=== PATIENT | female | born 1980 | race Caucasian/White ===

== ENCOUNTER → 2017-04-25 | Emergency (ER) | payer OTHER ==
[~2017-04-25] VITALS: Ht 162.6 cm; Wt 61.2 kg
== END | disposition home or self-care (01) ==
LOC: ER 15:49
DX: B02.9 Zoster without complications (principal)

== ENCOUNTER 2018-01-30 16:14 | Emergency (ER) | payer OTHER ==
[~2018-01-30] VITALS: Ht 162.6 cm; Wt 54.4 kg
[2018-01-30] MEDS ORDERED: PANADOL EXTRA500 MG (16:33)
[2018-01-30] MEDS ORDERED: [UNRECOGNIZED DRUG - OTHER] (16:34)
== END 2018-01-30 22:11 | disposition home or self-care (01) ==
LOC: ER 16:14
DX: J09.X2 Influenza due to identified novel influenza A virus with other respiratory manifestations (principal)

== ENCOUNTER 2018-06-14 15:15 | Emergency (ER) | payer OTHER ==
[~2018-06-14] VITALS: Ht 162.6 cm; Wt 54.4 kg
[~2018-06-14 15:15] MED LIST: PANADOL EXTRA500 MG; [UNRECOGNIZED DRUG - OTHER]
== END 2018-06-14 19:46 | disposition home or self-care (01) ==
LOC: ER 15:15
DX: M75.51 Bursitis of right shoulder (principal)

== ENCOUNTER 2018-12-24 22:54 | Inpatient (IN) | payer OTHER ==
[~2018-12-24] VITALS: Ht 160 cm; Wt 59.0 kg
== END 2018-12-27 11:27 | disposition home or self-care (01) | DRG 373 ==
LOC: ER 22:54 → SURG 12-25 07:30 → O/R 12-26 13:44 → SURG 12-26 13:49
PROVIDERS: ADMIT Surgery
DX: K35.890 Other acute appendicitis without perforation or gangrene (principal); R10.31 Right lower quadrant pain

== ENCOUNTER 2018-12-31 12:56 | Emergency (ER) | payer OTHER ==
[~2018-12-31] VITALS: Ht 162.6 cm; Wt 53.1 kg
[2018-12-31] MEDS ORDERED: AMOX1TAB5 (13:56)
== END 2018-12-31 18:22 | disposition home or self-care (01) ==
LOC: ER 12:56
DX: R51 Headache (principal)

== ENCOUNTER 2020-11-08 20:19 | Emergency (ER) | payer OTHER ==
[~2020-11-08] VITALS: Ht 162.6 cm; Wt 53.5 kg
[~2020-11-08 20:19] MED LIST changes: +AMOX1TAB5
== END 2020-11-08 23:44 | disposition home or self-care (01) ==
LOC: ER 20:19
DX: J06.9 Acute upper respiratory infection, unspecified (principal); Z03.818 Encounter for observation for suspected exposure to other biological agents ruled out

== ENCOUNTER 2021-09-19 17:53 | Emergency (ER) | payer OTHER ==
[~2021-09-19] VITALS: Ht 162.6 cm; Wt 55.3 kg
== END 2021-09-19 21:56 | disposition home or self-care (01) ==
LOC: ER 17:53
DX: K52.89 Other specified noninfective gastroenteritis and colitis (principal); A05.9 Bacterial foodborne intoxication, unspecified; E86.0 Dehydration; Z91.018 Allergy to other foods